=== PATIENT | female | born 1995 | race Caucasian/White ===

== ENCOUNTER 2017-11-11 13:35 | Emergency (ER) | payer BC, OTHER ==
[~2017-11-11] VITALS: Ht 165.1 cm; Wt 72.6 kg
[2017-11-11 13:55] VITALS: BP 127/76
[2017-11-11] MEDS ORDERED: IV NORMAL SALINE 1,000ML 1,000 ML IV SCH (14:03)
[2017-11-11] MEDS ORDERED: 0.9 % SODIUM CHLORIDE 10 ML DISP.SYRIN. IV PRN (14:15)
[2017-11-11 14:28] LABS: BASO % 0 % (0-3); EOS # 0.4 x10^3/uL (0.0-0.7); EOS % 3 % (0-3); HEMATOCRIT 45.7 % (36.0-47.0); HEMOGLOBIN 15.4 g/dL (12.0-15.5); LYMPH # 1.3 x10^3/uL (1.0-4.8); LYMPH % 11 % (24-48); MEAN CORPUSCULAR HEMOGLOBIN 29 pg (25-35); MEAN CORPUSCULAR HGB CONC 34 g/dL (31-37); MEAN CORPUSCULAR VOLUME 87 fL (79-100); MONO # 0.4 x10^3/uL (0.0-1.1); MONO % 4 % (0-9); NEUT # 9.3 x10^3uL (1.8-7.7); NEUT % 82 % (31-73); PLATELET COUNT 286 x10^3/uL (140-400); RED BLOOD COUNT 5.24 x10^6/uL (3.50-5.40); RED CELL DISTRIBUTION WIDTH 13.2 % (11.5-14.5); WHITE BLOOD COUNT 11.4 x10^3/uL (4.0-11.0)
[2017-11-11] MEDS ORDERED: ONDANSETRON PF 4 MG/2 ML VIAL. IV ONE (14:30)
--- NOTE | 2017-11-11 14:33 | PHYS DOC ---
Past History Past Medical History: No Pertinent History Adult General Chief Complaint Chief Complaint: ABDOMINAL PAIN HPI HPI 21-year-old female patient complaining of right lower quadrant pain that woke her up at 7 AM as a constant and sharp pain with radiation to her back and associated with 5 episodes of vomiting and 7 or 8 episodes of nonbloody diarrhea patient complaining of anorexia without fever and chills and urinary symptom and vaginal bleeding or discharge. Patient denies sick contact. Patient rated her pain 8/10. Patient states she is on control and her last period was 9 months ago. Review of Systems Review of Systems Constitutional: Denies fever or chills [] Eyes: Denies change in visual acuity, redness, or eye pain [] HENT: Denies nasal congestion or sore throat [] Respiratory: Denies cough or shortness of breath [] Cardiovascular: No additional information not addressed in HPI [] GI: Reports abdominal pain, nausea, vomiting, diarrhea [] : Denies dysuria or hematuria [] Musculoskeletal: Denies back pain or joint pain [] Integument: Denies rash or skin lesions [] Neurologic: Denies headache, focal weakness or sensory changes [] Endocrine: Denies polyuria or polydipsia [] All other systems were reviewed and found to be within normal limits, except as documented in this note. Current Medications Current Medications Current Medications Medications (Trade) Dose Ordered Sig/Mayela Start Time Stop Time Status Last Admin Dose Admin Ondansetron HCl (Zofran) 4 mg 1X ONCE 11/11/17 14:15 11/11/17 14:16 UNV Sodium Chloride (Normal Saline Flush) 10 ml QSHIFT PRN 11/11/17 14:15 UNV Physical Exam Physical Exam Constitutional: Well developed, well nourished, mild distress, non-toxic appearance. [] HENT: Normocephalic, atraumatic, bilateral external ears normal, oropharynx moist, no oral exudates, nose normal. [] Eyes: PERRLA, EOMI, conjunctiva normal, no discharge. [] Neck: Normal range of motion, no tenderness, supple, no stridor. [] Cardiovascular:Heart rate regular rhythm, no murmur [] Lungs & Thorax: Bilateral breath sounds clear to auscultation [] Abdomen: Bowel sounds normal, soft, no tenderness, right lower quadrant guarding , no masses, no pulsatile masses. [] Skin: Warm, dry, no erythema, no rash. [] Back: No tenderness, no CVA tenderness. [] Extremities: No tenderness, no cyanosis, no clubbing, ROM intact, no edema. [] Neurologic: Alert and oriented X 3, normal motor function, normal sensory function, no focal deficits noted. [] Psychologic: Affect normal, judgement normal, mood normal. [] EKG EKG [] Radiology/Procedures Radiology/Procedures [] Course & Med Decision Making Course & Med Decision Making Pertinent Labs reviewed. (See chart for details) Evaluation of patient in ER showed young lady presented with nausea and vomiting and diarrhea and abdominal pain since this morning. Patient had unremarkable physical exam except for the right lower quadrant guarding that resolved after treatment in ER. Patient tolerated oral intake. Labs and UA was unremarkable except for mild leukocytosis. Plan discharge patient home with diagnosis of acute gastroenteritis. [] Dragon Disclaimer Dragon Disclaimer This electronic medical record was generated, in whole or in part, using a voice recognition dictation system. Departure Departure: Impression: Primary Impression: Acute gastroenteritis Additional Impression: Right lower quadrant abdominal pain Disposition: HOME, SELF-CARE (At 1551) Condition: IMPROVED Referrals: PCPDELLA (PCP) Patient Instructions: Viral Gastroenteritis Additional Instructions: Take only liquid diet today Follow-up with your primary care physician in 3-5 days Return to ER if not feeling better Scripts Naproxen (NAPROSYN) 500 Mg Tablet 1 TAB PO BID, #14 TAB 1 Refill Prov: ACOSTA KING MD 11/11/17 Ondansetron (ZOFRAN ODT) 4 Mg Tab.rapdis 1 TAB SL Q8HRS, #15 TAB Prov: ACOSTA KING MD 11/11/17 Problem Qualifiers ACOSTA KING MD Nov 11, 2017 14:33
[2017-11-11 14:39] LABS: ALBUMIN 4.2 g/dL (3.4-5.0); ALBUMIN/GLOBULIN RATIO 1.1 (1.0-1.7); CALCIUM 8.9 mg/dL (8.5-10.1); CREATININE 0.9 mg/dL (0.6-1.0); GFR 80.7; TOTAL BILIRUBIN 0.8 mg/dL (0.2-1.0); TOTAL PROTEIN 7.9 g/dL (6.4-8.2)
[2017-11-11] MEDS ORDERED: KETOROLAC 30 MG/ML VIAL. IV ONE (14:45)
[2017-11-11 15:13] LABS: BILIRUBIN,URINE NEG (NEG); CLARITY,URINE HAZY; COLOR,URINE YELLOW; GLUCOSE,URINE NEG (NEG); NITRITE,URINE NEG (NEG); UROBILINOGEN,URINE 0.2 mg/dL (0.2 mg/dL)
[2017-11-11 15:14] LABS: BACTERIA,URINE FEW /HPF (0-FEW); SQUAMOUS EPITHELIAL CELL,UR MOD /LPF; WBC,URINE OCC /HPF (0-4)
[2017-11-11] MEDS ORDERED: NAPR-683 PO (15:50)
[2017-11-11] MEDS ORDERED: ONDA4TAB10 SL (15:50)
== END 2017-11-11 16:01 | disposition home or self-care (01) ==
LOC: ER 13:35
DX: K52.89 Other specified noninfective gastroenteritis and colitis (principal); R10.31 Right lower quadrant pain
CPT/HCPCS: 36415; 80053; 81001; 81025; 83690; 85025; 96361; 96374; 96375; 99284; J1885; J2405; J7030

== ENCOUNTER 2018-03-12 19:34 | Emergency (ER) | payer SELFPAY ==
[~2018-03-12] VITALS: Ht 165.1 cm; Wt 72.6 kg
[~2018-03-12 19:34] MED LIST: NAPR-683 PO; ONDA4TAB10 SL
[2018-03-12 19:39] VITALS: BP 119/79
[2018-03-12] MEDS ORDERED: TETRACAINE 0.5% OPHTH SOLUTION 4ML BOTTLE. OS ONE (20:15)
[2018-03-12] MEDS ORDERED: FLUORESCEIN 1MG EYE STRIP. OS ONE (20:15)
--- NOTE | 2018-03-12 20:34 | PHYS DOC ---
Past History Past Medical History: No Pertinent History Past Surgical History: No Surgical History Smoking: Non-smoker Additional Smoking Information: "Vapes" occasionally as well, pt states Alcohol Use: None Drug Use: None Adult General Chief Complaint Chief Complaint: FOREIGN BODY/EYES HPI HPI 22-year-old female presents with concern for foreign body in her left eye. She was cleaning up a broken phone case that had an oily substance in it. She accidentally wiped her left eye with her finger which had the oil on it. She began to have discomfort in the side. She went to the urgent care who did flush the eye with saline. The pain continued and so the provider recommended she come to the ED for further evaluation. On arrival, the patient has discomfort and slight blurriness to her vision. Incident occurred about 2 hours ago. She denies any other injury or chance of foreign body. She has no other complaints. Review of Systems Review of Systems Constitutional: Denies fever or chills [] Eyes: Blurry vision in left eye. Pain in left eye. HENT: Denies nasal congestion or sore throat [] Respiratory: Denies cough or shortness of breath [] Cardiovascular: No additional information not addressed in HPI [] GI: Denies abdominal pain, nausea, vomiting, bloody stools or diarrhea [] : Denies dysuria or hematuria [] Musculoskeletal: Denies back pain or joint pain [] Integument: Denies rash or skin lesions [] Neurologic: Denies headache, focal weakness or sensory changes [] Endocrine: Denies polyuria or polydipsia [] All other systems were reviewed and found to be within normal limits, except as documented in this note. Family History Family History No relevant family history Current Medications Current Medications Current Medications Medications (Trade) Dose Ordered Sig/Mayela Start Time Stop Time Status Last Admin Dose Admin Fluorescein Sodium (Ful-Chica 1mg) 1 strip 1X ONCE 03/12/18 20:15 03/12/18 20:17 DC Tetracaine HCl (Tetracaine) 1 drop 1X ONCE 03/12/18 20:15 03/12/18 20:17 DC Allergies Allergies Allergies Coded Allergies Type Severity Reaction Last Updated Verified No Known Drug Allergies 11/11/17 No Physical Exam Physical Exam Constitutional: Well developed, well nourished, no acute distress, non-toxic appearance. [] HENT: Normocephalic, atraumatic, bilateral external ears normal, oropharynx moist, no oral exudates, nose normal. [] Eyes: PERRLA, EOMI, conjunctiva normal, no discharge. Slight fluorescein uptake in the lateral sclera. No corneal abrasion or obvious foreign body. Neck: Normal range of motion, no tenderness, supple, no stridor. [] Cardiovascular:Heart rate regular rhythm, no murmur [] Lungs & Thorax: Bilateral breath sounds clear to auscultation [] Abdomen: Bowel sounds normal, soft, no tenderness, no masses, no pulsatile masses. [] Skin: Warm, dry, no erythema, no rash. [] Back: No tenderness, no CVA tenderness. [] Extremities: No tenderness, no cyanosis, no clubbing, ROM intact, no edema. [] Neurologic: Alert and oriented X 3, normal motor function, normal sensory function, no focal deficits noted. [] Psychologic: Affect normal, judgement normal, mood normal. [] Current Patient Data Vital Signs Vital Signs Date Time Temp Pulse Resp B/P (MAP) Pulse Ox O2 Delivery O2 Flow Rate FiO2 03/12/18 19:39 98.4 85 20 99 Room Air EKG EKG [] Radiology/Procedures Radiology/Procedures [] Impressions: I do not see any corneal abrasion of the eye. There is mild uptake of the fluorescein in the sclera, but this was a location where the dye was applied. I do not believe antibiotics are indicated for this patient. Impression: Pain in the left eye due to foreign chemical substance. Course & Med Decision Making Course & Med Decision Making Pertinent Labs and Imaging studies reviewed. (See chart for details) [] Dragon Disclaimer Dragon Disclaimer This electronic medical record was generated, in whole or in part, using a voice recognition dictation system. Departure Departure: Disposition: 01 HOME, SELF-CARE Condition: STABLE Referrals: PCP,DELLA (PCP) MARITA MENDOZA DO March 12, 2018 20:34
== END 2018-03-12 20:40 | disposition home or self-care (01) ==
LOC: ER 19:34
DX: H57.12 Ocular pain, left eye (principal); Z77.098 Contact with and (suspected) exposure to other hazardous, chiefly nonmedicinal, chemicals
CPT/HCPCS: 99283

== ENCOUNTER 2018-04-22 20:57 | Emergency (ER) | payer SELFPAY ==
[~2018-04-22] VITALS: Ht 165.1 cm; Wt 74.6 kg
--- NOTE | 2018-04-22 20:59 | ED.ADGEN ---
Past History Past Medical History: No Pertinent History Past Surgical History: No Surgical History Smoking: Non-smoker Alcohol Use: None Drug Use: None Adult General Chief Complaint Chief Complaint "...I was putting a lid on trash can.. and caught my Rt. palm.. and got this laceration ( 2 cm). HPI HPI Patient is a 22 year old female who presents with above hx and complaints 2 cm laceration to Rt. palm. Distal neurovascular intact. Tetanus is up to date. Laceration is somewhat flap like and part of skin appears avascular. Patient is right-hand dominant. Patient denies any history of immunosuppression. Patient denies any specific ill contacts. Patient normally healthy. Patient works in healthcare. Review of Systems Review of Systems Constitutional: Denies fever or chills [] Eyes: Denies change in visual acuity, redness, or eye pain [] HENT: Denies nasal congestion or sore throat [] Respiratory: Denies cough or shortness of breath [] Cardiovascular: No additional information not addressed in HPI [] GI: Denies abdominal pain, nausea, vomiting, bloody stools or diarrhea [] : Denies dysuria or hematuria [] Musculoskeletal: Denies back pain or joint pain [] Integument: Denies rash or skin lesions []Complaints of laceration Neurologic: Denies headache, focal weakness or sensory changes [] Endocrine: Denies polyuria or polydipsia [] All other systems were reviewed and found to be within normal limits, except as documented in this note. Family History Family History Noncontributory Current Medications Current Medications Current Medications Medications (Trade) Dose Ordered Sig/Mayela Start Time Stop Time Status Last Admin Dose Admin Bupivacaine HCl (Sensorcaine Mpf 0.5%) 30 ml 1X ONCE 04/22/18 21:15 04/22/18 21:16 DC Lidocaine HCl 20 ml 1X ONCE 04/22/18 21:15 04/22/18 21:16 DC Tetanus/ Diphtheria Toxoids Adsorbed (Tenivac Vial) 0.5 ml ONCE ONCE 04/22/18 22:00 04/22/18 22:01 DC 04/22/18 22:04 0.5 ML Allergies Allergies Allergies Coded Allergies Type Severity Reaction Last Updated Verified No Known Drug Allergies 11/11/17 No Physical Exam Physical Exam Constitutional: Well developed, well nourished, moderately acute distress, non- toxic appearance. [] HENT: Normocephalic, atraumatic, bilateral external ears normal, oropharynx moist, no oral exudates, nose normal. [] Eyes: PERRLA, EOMI, conjunctiva normal, no discharge. [] Neck: Normal range of motion, no tenderness, supple, no stridor. [] Cardiovascular:Heart rate regular rhythm, no murmur [] Lungs & Thorax: Bilateral breath sounds clear to auscultation [] Abdomen: Bowel sounds normal, soft, no tenderness, no masses, no pulsatile masses. [] Skin: Warm, dry, no erythema, no rash. [] Sedation per history of present illness Back: No tenderness, no CVA tenderness. [] Extremities: No tenderness, no cyanosis, no clubbing, ROM intact, no edema. [] Neurologic: Alert and oriented X 3, normal motor function, normal sensory function, no focal deficits noted. [] Psychologic: Affect anxious, judgement normal, mood normal. [] Current Patient Data Vital Signs Vital Signs Date Time Temp Pulse Resp B/P (MAP) Pulse Ox O2 Delivery O2 Flow Rate FiO2 04/22/18 21:00 98.5 82 20 99 Room Air EKG EKG [] Radiology/Procedures Radiology/Procedures [] Course & Med Decision Making Course & Med Decision Making Pertinent Labs and Imaging studies reviewed. (See chart for details) Procedure note- laceration repair- handwasher surgical soap. Betadine applied to edge of laceration. Injected edge of laceration of Sensorcaine and lidocaine. Re-irrigated hand and range of motion. Placed 5 x 4-0 prolene sutures. Dressing applied with Bactracin. Patient to keep laceration clean and dry. When dressing removal apply Polysporin 4 times a day. Follow-up primary care. Sutures out in 10 days. Monitor closely for signs of infection. Tylenol and ibuprofen for pain. [] Final Impression Final Impression 1. 2 cm laceration Rt. palm[] Dragon Disclaimer Dragon Disclaimer This electronic medical record was generated, in whole or in part, using a voice recognition dictation system. MIKE AMBROCIO MD Apr 22, 2018 20:59
[2018-04-22 21:00] VITALS: BP 130/73
[2018-04-22] MEDS ORDERED: LIDOCAINE 2% 20 ML VIAL. IJ ONE (21:15)
[2018-04-22] MEDS ORDERED: BUPIVACAINE MPF 0.5% 30 ML VIAL. SQ ONE (21:15)
[2018-04-22] MEDS ORDERED: TETANUS AND DIPHTHERIA TOX/PF 0.5 ML VIAL. VAX IM ONE (22:00)
== END 2018-04-22 22:22 | disposition home or self-care (01) ==
LOC: ER 20:57
DX: S61.411A Laceration without foreign body of right hand, initial encounter (principal); W26.8XXA Contact with other sharp object(s), not elsewhere classified, initial encounter; Y93.89 Activity, other specified; Y92.89 Other specified places as the place of occurrence of the external cause; Y99.8 Other external cause status
CPT/HCPCS: 12001; 90471; 90714; 99283-25

== ENCOUNTER 2018-05-08 10:00 | Emergency (ER) | payer OTHER ==
[~2018-05-08] VITALS: Ht 165.1 cm; Wt 74.8 kg
[2018-05-08 11:21] LABS: BILIRUBIN,URINE NEG (NEG); CLARITY,URINE HAZY; COLOR,URINE YELLOW; GLUCOSE,URINE NEG (NEG)
[2018-05-08 11:22] LABS: BACTERIA,URINE MOD /HPF (0-FEW); NITRITE,URINE NEG (NEG); SQUAMOUS EPITHELIAL CELL,UR MOD /LPF; UROBILINOGEN,URINE 0.2 mg/dL (0.2 mg/dL)
[2018-05-08 11:26] LABS: U PREG PATIENT NEGATIVE (NEG)
[2018-05-08] MEDS ORDERED: SULF1TAB24 PO (11:38)
[2018-05-08] MEDS ORDERED: NAPR-683 PO (11:38)
--- NOTE | 2018-05-08 11:38 | PHYS DOC ---
Past History Past Medical History: No Pertinent History Past Surgical History: Other Smoking: Non-smoker Alcohol Use: None Drug Use: None Adult General Chief Complaint Chief Complaint: abdominal pain [facility] 22-year-old female patient complaining of constant right lower quadrant pain for the last 3 days without radiation urinary symptoms, fever and chills, anorexia, nausea and vomiting, constipation and diarrhea. Patient said the pain getting worse with activity. Patient rated her pain moderate and doesn't want pain medication in ER. Review of Systems Review of Systems Constitutional: Denies fever or chills [] Eyes: Denies change in visual acuity, redness, or eye pain [] HENT: Denies nasal congestion or sore throat [] Respiratory: Denies cough or shortness of breath [] Cardiovascular: No additional information not addressed in HPI [] GI: Reports abdominal pain, denies vomiting, bloody stools or diarrhea [] : Denies dysuria or hematuria [] Musculoskeletal: Denies back pain or joint pain [] Integument: Denies rash or skin lesions [] Neurologic: Denies headache, focal weakness or sensory changes [] Endocrine: Denies polyuria or polydipsia [] All other systems were reviewed and found to be within normal limits, except as documented in this note. Allergies Allergies Allergies Coded Allergies Type Severity Reaction Last Updated Verified No Known Drug Allergies 11/11/17 No Physical Exam Physical Exam Constitutional: Well developed, well nourished, no acute distress, non-toxic appearance. [] HENT: Normocephalic, atraumatic, bilateral external ears normal, oropharynx moist, no oral exudates, nose normal. [] Eyes: PERRLA, EOMI, conjunctiva normal, no discharge. [] Neck: Normal range of motion, no tenderness, supple, no stridor. [] Cardiovascular:Heart rate regular rhythm, no murmur [] Lungs & Thorax: Bilateral breath sounds clear to auscultation [] Abdomen: Bowel sounds normal, soft, no tenderness, no masses, no pulsatile masses. [] Skin: Warm, dry, no erythema, no rash. [] Back: No tenderness, no CVA tenderness. [] Extremities: No tenderness, no cyanosis, no clubbing, ROM intact, no edema. [] Neurologic: Alert and oriented X 3, normal motor function, normal sensory function, no focal deficits noted. [] Psychologic: Affect normal, judgement normal, mood normal. [] Current Patient Data Vital Signs Vital Signs Date Time Temp Pulse Resp B/P (MAP) Pulse Ox O2 Delivery O2 Flow Rate FiO2 05/08/18 10:21 98.3 94 18 99 Room Air Lab Results Laboratory Tests Test 05/08/18 10:58 Urine Collection Type Unknown Urine Color Yellow Urine Clarity Hazy Urine pH 6.0 Urine Specific [place] 1.025 Urine Protein Neg (NEG-TRACE) Urine Glucose (UA) Neg mg/dL (NEG) Urine Ketones (Stick) Trace mg/dL (NEG) Urine Blood Trace (NEG) Urine Nitrite Neg (NEG) Urine Bilirubin Neg (NEG) Urine Urobilinogen Dipstick 0.2 mg/dL (0.2 mg/dL) Urine Leukocyte Esterase Trace (NEG) Urine RBC 1-2 /HPF (0-2) Urine WBC 1-4 /HPF (0-4) Urine Squamous Epithelial Cells Mod /LPF Urine Bacteria Mod /HPF (0-FEW) Urine Mucus Marked /LPF Urine Test Negative (NEG) EKG EKG [] Radiology/Procedures Radiology/Procedures [] Course & Med Decision Making Course & Med Decision Making Pertinent Labs reviewed. (See chart for details) discharge: I've spoken with the patient and/or caregivers. I've explained the patient's condition, diagnosis and treatment plan based on information available to me at this time. I've answered the patient's and/or caregivers questions and addressed any concerns. The patient and/or caregivers have a good understanding the patient's diagnosis, condition and treatment plan as can be expected at this point. Vital signs have been stabilized. The patient's condition is stable for discharge from the emergency department. The patient will pursue further outpatient evaluation with her primary care provider or other designated consulting physician as outlined in the discharge instructions. Patient and/or caregivers are agreeable to this plan of care and follow-up instructions have been explained in detail. The patient and/or caregivers have received these instructions in written format and expressed understanding of these discharge instructions. The patient and her caregivers are aware that if any significant change in condition or worsening of symptoms should prompt him to immediately return to this of the closest emergency department. If an emergent department is not readily available I would encourage him to call 911. [] Dragon Disclaimer Dragon Disclaimer This electronic medical record was generated, in whole or in part, using a voice recognition dictation system. Departure Departure: Impression: Primary Impression: Urinary tract infection Additional Impressions: Right lower quadrant pain Tobacco abuse Tobacco abuse counseling Disposition: HOME, SELF-CARE (At 1136) Condition: STABLE Referrals: PCP,DELLA (PCP) Patient Instructions: Smoking Cessation, Tips For Success, Urinary Tract Infection Additional Instructions: Drink plenty of liquids Follow-up with your primary care physician in 3-5 days Return to ER if not getting better Scripts Naproxen (NAPROSYN) 500 Mg Tablet 1 TAB PO BID, #14 TAB 1 Refill Prov: ACOSTA KING MD 05/08/18 Sulfamethoxazole/Trimethoprim (BACTRIM DS TABLET) 1 Each Tablet 1 TAB PO BID, #6 TAB Prov: ACOSTA KING MD 05/08/18 Problem Qualifiers ACOSTA KING MD May 08, 2018 11:38
[2018-05-08 11:44] VITALS: BP 116/69
== END 2018-05-08 11:45 | disposition home or self-care (01) ==
LOC: ER 10:00
DX: N39.0 Urinary tract infection, site not specified (principal); Z72.0 Tobacco use; Z71.6 Tobacco abuse counseling
CPT/HCPCS: 81001; 81025; 87086; 99284

== ENCOUNTER 2018-06-07 13:37 | Emergency (ER) | payer OTHER ==
[~2018-06-07] VITALS: Ht 165.1 cm; Wt 73.9 kg
[~2018-06-07 13:37] MED LIST changes: +SULF1TAB24 PO
--- NOTE | 2018-06-07 14:15 | PHYS DOC ---
Past History Past Medical History: No Pertinent History Past Surgical History: Other Smoking: Non-smoker Alcohol Use: None Drug Use: None Adult General Chief Complaint Chief Complaint: UPPER EXTREMITY INJURY [facility] HPI Patient is a [22] year old right-handed [female] who presents with [complaining of left elbow pain. Patient states she was wrestling with her last night and tried to spanks "his janice but" and felt a pop in her left elbow] the patient states she took Advil and applied ice on her elbow complaining of painful movement of her elbow and holding her and pulling flexion position. Patient denies other injuries and focal neuro deficit. Patient rated her pain 6/ 10. Patient states her last saturation was April 17 and had a home negative test 1 week ago but she is not sure about . Review of Systems Review of Systems Constitutional: Denies fever or chills [] Eyes: Denies change in visual acuity, redness, or eye pain [] HENT: Denies nasal congestion or sore throat [] Respiratory: Denies cough or shortness of breath [] Cardiovascular: No additional information not addressed in HPI [] GI: Denies abdominal pain, nausea, vomiting, bloody stools or diarrhea [] : Denies dysuria or hematuria [] Musculoskeletal: Denies back pain, reports joint pain [] Integument: Denies rash or skin lesions [] Neurologic: Denies headache, focal weakness or sensory changes [] Endocrine: Denies polyuria or polydipsia [] All other systems were reviewed and found to be within normal limits, except as documented in this note. Allergies Allergies Allergies Coded Allergies Type Severity Reaction Last Updated Verified No Known Drug Allergies 11/11/17 No Physical Exam Physical Exam Constitutional: Well developed, well nourished, mild distress, non-toxic appearance. [] HENT: Normocephalic, atraumatic Eyes: PERRLA, EOMI, conjunctiva normal, no discharge. [] Neck: Normal range of motion, no tenderness, supple, no stridor. [] Cardiovascular:Heart rate regular rhythm, no murmur [] Lungs & Thorax: Bilateral breath sounds clear to auscultation [] Skin: Warm, dry, no erythema, no rash. [] Extremities: Patient holding the left elbow infection position without deformity or edema or ecchymosis, limited range of motion with pain without bone tenderness No tenderness, no cyanosis, no clubbing, no edema. [] Neurologic: Alert and oriented X 3, normal motor function, normal sensory function, no focal deficits noted. [] Psychologic: Affect normal, judgement normal, mood normal. [] EKG EKG [] Radiology/Procedures Radiology/Procedures [[address] [address] IMAGING REPORT Signed PATIENT: ANIA FLORIAN ACCOUNT: [id number] : 1995 LOCATION: ER AGE: 22 SEX: F EXAM STATUS: PRE ER ORD. PHYSICIAN: ACOSTA KING MD REASON: pain after injury PROCEDURE: ELBOW LEFT 3V Examination: 3 views of the left elbow HISTORY: History of left elbow pain, injury COMPARISON: None available FINDINGS: The alignment of the elbow joint grossly appears unremarkable. There is no acute fracture or dislocation identified. IMPRESSION: No acute osseous findings. If pain persists follow-up radiograph is recommended in 5-7 days. Electronically signed by: Shaun Azul MD (06/07/2018 2:10 PM) [facility] DICTATED AND SIGNED BY: SHAUN AZUL MD DATE: 06/07/18 140 CC: ACOSTA KING MD; PCP,NO ~ ] Course & Med Decision Making Course & Med Decision Making Pertinent Imaging studies reviewed. (See chart for details) Evaluation of patient in ER showed 22-year-old female patient with complaining of left elbow pain. Patient had unremarkable physical exam except for limited range of motion. X-ray did not show fracture. Patient didn't want to have pain medication in ER. Patient had negative tests but had UTI. Prescription for Cipro and Naprosyn was given and Chi wrap was applied in ER by [employer]. [] Dragon Disclaimer Dragon Disclaimer This electronic medical record was generated, in whole or in part, using a voice recognition dictation system. Departure Departure: Impression: Primary Impression: Sprain of elbow, left Additional Impression: Urinary tract infection Disposition: 01 HOME, SELF-CARE (at 1426) Condition: STABLE Referrals: PCP,NO (PCP) Patient Instructions: Elbow Injury, Urinary Tract Infection Additional Instructions: Drink plenty of liquids Follow-up with your primary care physician in 3-5 days Return to ER if not getting better Apply ice on your elbow Scripts Ciprofloxacin Hcl (CIPRO) 250 Mg Tablet 1 TAB PO BID, #6 TAB Prov: ACOSTA KING MD 06/07/18 Naproxen (NAPROSYN) 500 Mg Tablet 1 TAB PO BID, #14 TAB Prov: ACOSTA KING MD 06/07/18 Problem Qualifiers ACOSTA KING MD Jun 07, 2018 14:15
[2018-06-07] MEDS ORDERED: NAPR-683 PO (14:29)
[2018-06-07] MEDS ORDERED: CIPR250T30 PO (14:29)
[2018-06-07 14:39] LABS: BILIRUBIN,URINE NEG (NEG); CLARITY,URINE CLOUDY; COLOR,URINE YELLOW; GLUCOSE,URINE NEG (NEG); NITRITE,URINE NEG (NEG); UROBILINOGEN,URINE 1 mg/dL (0.2 mg/dL)
[2018-06-07 14:40] LABS: BACTERIA,URINE MOD /HPF (0-FEW); RBC,URINE 0 /HPF (0-2); SQUAMOUS EPITHELIAL CELL,UR MANY /LPF; WBC,URINE 20-40 /HPF (0-4)
== END 2018-06-07 14:40 | disposition home or self-care (01) ==
LOC: ER 13:37
DX: S53.402A Unspecified sprain of left elbow, initial encounter (principal); N39.0 Urinary tract infection, site not specified; X50.9XXA Other and unspecified overexertion or strenuous movements or postures, initial encounter; Y93.72 Activity, wrestling; Y92.89 Other specified places as the place of occurrence of the external cause; Y99.8 Other external cause status
CPT/HCPCS: 73080; 81001; 81025; 87086; 99285

== ENCOUNTER 2018-06-15 21:12 | Emergency (ER) | payer OTHER ==
[~2018-06-15] VITALS: Ht 317.5 cm; Wt 74.6 kg
[~2018-06-15 21:12] MED LIST changes: +CIPR250T30 PO
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
[2018-06-15 21:40] VITALS: BP 133/77
[2018-06-15] MEDS ORDERED: HYDROcodon/IBUPROFEN 7.5/200MG 1 TAB TABLET PO ONE (22:00)
[2018-06-15] MEDS ORDERED: IBUP400T18 PO (22:04)
[2018-06-15] MEDS ORDERED: HYDROcodon/IBUPROFEN 7.5/200MG 1 TAB TABLET ONE (22:07)
--- NOTE | 2018-06-16 08:24 | RAD ---
EXAM: 3 views of the left elbow DATE: 06/15/2018 9:51 PM CLINICAL INDICATION: LEFT ELBOW XRAYS TAKEN AT TIME OF INJURY 8.4.18, STILL NOT ANY BETTER. PAIN WITH TOUCH AND UNABLE TO BEND WITHOUT PAIN COMPARISON: None. FINDINGS/ IMPRESSION: There is no acute fracture or dislocation. No elbow joint effusion. Joint spaces are preserved without significant degenerative/proliferative change Electronically signed by: Cricket Watkins MD (06/16/2018 8:20 AM) [facility]
== END 2018-06-15 22:15 | disposition home or self-care (01) ==
LOC: ER 21:12
DX: S53.492A Other sprain of left elbow, initial encounter (principal); Z88.1 Allergy status to other antibiotic agents; W51.XXXA Accidental striking against or bumped into by another person, initial encounter; Y93.89 Activity, other specified; Y92.89 Other specified places as the place of occurrence of the external cause; Y99.8 Other external cause status
CPT/HCPCS: 29240; 73080; 99284

== ENCOUNTER 2018-07-16 15:40 | Emergency (ER) | payer OTHER ==
[~2018-07-16] VITALS: Ht 165.1 cm; Wt 69.4 kg
[~2018-07-16 15:40] MED LIST changes: +IBUP400T18 PO
[2018-07-16 16:17] LABS: BASO # 0.1 x10^3/uL (0.0-0.2); BASO % 1 % (0-3); EOS # 0.3 x10^3/uL (0.0-0.7); EOS % 4 % (0-3); HEMATOCRIT 41.3 % (36.0-47.0); HEMOGLOBIN 13.6 g/dL (12.0-15.5); LYMPH # 3.2 x10^3/uL (1.0-4.8); LYMPH % 38 % (24-48); MEAN CORPUSCULAR HEMOGLOBIN 29 pg (25-35); MEAN CORPUSCULAR HGB CONC 33 g/dL (31-37); MEAN CORPUSCULAR VOLUME 88 fL (79-100); MONO # 0.6 x10^3/uL (0.0-1.1); MONO % 8 % (0-9); NEUT % 49 % (31-73); PLATELET COUNT 111 x10^3/uL (140-400); RED BLOOD COUNT 4.71 x10^6/uL (3.50-5.40); RED CELL DISTRIBUTION WIDTH 13.4 % (11.5-14.5); WHITE BLOOD COUNT 8.2 x10^3/uL (4.0-11.0)
[2018-07-16 16:32] LABS: ALBUMIN 3.5 g/dL (3.4-5.0); CALCIUM 8.6 mg/dL (8.5-10.1); CREATININE 0.9 mg/dL (0.6-1.0); DIRECT BILIRUBIN 0.1 mg/dL (0.0-0.2); GFR 79.8; POTASSIUM 4.3 mmol/L (3.5-5.1); TOTAL BILIRUBIN 0.2 mg/dL (0.2-1.0); TOTAL PROTEIN 6.7 g/dL (6.4-8.2)
[2018-07-16 17:29] LABS: PLATELET CLUMP PRESENT; PLT ESTIMATE DECREASED (ADEQUATE)
[2018-07-16 17:33] LABS: BARBITURATES NEG (NEG); BENZODIAZEPINES NEG (NEG); CANNABINOIDS NEG (NEG); COCAINE NEG (NEG); METHADONE NEG (NEG); OPIATES NEG (NEG); PHENCYCLIDINE NEG (NEG)
[2018-07-16 17:34] LABS: AMPHETAMINE/METHAMPHETAMINE NEG (NEG)
[2018-07-16 17:35] LABS: BILIRUBIN,URINE NEG (NEG); CLARITY,URINE HAZY; COLOR,URINE YELLOW; GLUCOSE,URINE NEG (NEG)
[2018-07-16 17:36] LABS: BACTERIA,URINE MOD /HPF (0-FEW); NITRITE,URINE NEG (NEG); RBC,URINE RARE /HPF (0-2); SQUAMOUS EPITHELIAL CELL,UR MANY /LPF; UROBILINOGEN,URINE 1 mg/dL (0.2 mg/dL)
[2018-07-16] MEDS ORDERED: CIPROFLOXACIN HCL 500 MG TABLET PO ONE (17:45)
--- NOTE | 2018-07-16 17:57 | PHYS DOC ---
Past History Past Medical History: Depression Past Surgical History: Other Smoking: Non-smoker Alcohol Use: None Drug Use: None Adult General Chief Complaint Chief Complaint: LACERATION/AVULSION [facility] HPI Patient is a 22 year old female who presents with laceration of left forearm. Patient states she cut her left forearm to decrease of her anxiety and depression with a knife at home. Patient states she had history of depression since age of 14 with multiple self- mutilation and suicidal attempts with the last suicidal attempt 1 year ago. Patient denies homicidal ideation. She complaining of audible hallucination. Patient denies suicidal ideation at this time. Patient is up-to-date with tetanus immunization. Review of Systems Review of Systems Constitutional: Denies fever or chills [] Eyes: Denies change in visual acuity, redness, or eye pain [] HENT: Denies nasal congestion or sore throat [] Respiratory: Denies cough or shortness of breath [] Cardiovascular: No additional information not addressed in HPI [] GI: Denies abdominal pain, nausea, vomiting, bloody stools or diarrhea [] : Denies dysuria or hematuria [] Musculoskeletal: Denies back pain or joint pain [] Integument: Denies rash or skin lesions [] Neurologic: Denies headache, focal weakness or sensory changes [] Endocrine: Denies polyuria or polydipsia [] All other systems were reviewed and found to be within normal limits, except as documented in this note. Allergies Allergies Allergies Coded Allergies Type Severity Reaction Last Updated Verified amoxicillin Allergy Unknown 06/07/18 Yes Physical Exam Physical Exam Constitutional: Well developed, well nourished, mild distress, non-toxic appearance. [] HENT: Normocephalic Eyes: PERRLA, EOMI, conjunctiva normal, no discharge. [] Neck: Normal range of motion, no tenderness, supple, no stridor. [] Cardiovascular:Heart rate regular rhythm, no murmur [] Lungs & Thorax: Bilateral breath sounds clear to auscultation [] Abdomen: Bowel sounds normal, soft, no tenderness, no masses, no pulsatile masses. [] Skin: Warm, dry, no erythema, no rash. [] Back: No tenderness, no CVA tenderness. [] Extremities: No tenderness, no cyanosis, no clubbing, ROM intact, no edema, left forearm with 5 cm superficial laceration without active bleeding. [] Neurologic: Alert and oriented X 3, normal motor function, normal sensory function, no focal deficits noted. [] Psychologic: Affect depressed, judgement normal, mood normal. [] Current Patient Data Vital Signs Vital Signs Date Time Temp Pulse Resp B/P (MAP) Pulse Ox O2 Delivery O2 Flow Rate FiO2 07/16/18 15:45 98.4 84 18 98 Room Air Lab Results Laboratory Tests Test 07/16/18 16:04 07/16/18 16:34 07/16/18 17:16 White Blood Count 8.2 x10^3/uL (4.0-11.0) Red Blood Count 4.71 x10^6/uL (3.50-5.40) Hemoglobin 13.6 g/dL (12.0-15.5) Hematocrit 41.3 % (36.0-47.0) Mean Corpuscular Volume 88 fL (79-100) Mean Corpuscular Hemoglobin 29 pg (25-35) Mean Corpuscular Hemoglobin Concent 33 g/dL (31-37) Red Cell Distribution Width 13.4 % (11.5-14.5) Platelet Count 111 x10^3/uL (140-400) L Neutrophils (%) (Auto) 49 % (31-73) Lymphocytes (%) (Auto) 38 % (24-48) Monocytes (%) (Auto) 8 % (0-9) Eosinophils (%) (Auto) 4 % (0-3) H Basophils (%) (Auto) 1 % (0-3) Neutrophils # (Auto) 4.0 x10^3uL (1.8-7.7) Lymphocytes # (Auto) 3.2 x10^3/uL (1.0-4.8) Monocytes # (Auto) 0.6 x10^3/uL (0.0-1.1) Eosinophils # (Auto) 0.3 x10^3/uL (0.0-0.7) Basophils # (Auto) 0.1 x10^3/uL (0.0-0.2) Platelet Estimate Decreased (ADEQUATE) Platelet Clumps, EDTA Present Sodium Level 140 mmol/L (136-145) Potassium Level 4.3 mmol/L (3.5-5.1) Chloride Level 107 mmol/L (98-107) Carbon Dioxide Level 29 mmol/L (21-32) Anion Gap 4 (6-14) L Blood Urea Nitrogen 11 mg/dL (7-20) Creatinine 0.9 mg/dL (0.6-1.0) Estimated GFR (Cockcroft-Gault) 79.8 Glucose Level 90 mg/dL (70-99) Calcium Level 8.6 mg/dL (8.5-10.1) Total Bilirubin 0.2 mg/dL (0.2-1.0) Direct Bilirubin 0.1 mg/dL (0.0-0.2) Aspartate Amino Transferase (AST) 21 U/L (15-37) Alanine Aminotransferase (ALT) 18 U/L (14-59) Alkaline Phosphatase 82 U/L (46-116) Total Protein 6.7 g/dL (6.4-8.2) Albumin 3.5 g/dL (3.4-5.0) Ethyl Alcohol Level < 10 mg/dL (0-10) POC Urine HCG, Qualitative hcg negative (Negative) Urine Collection Type Unknown Urine Color Yellow Urine Clarity Hazy Urine pH 7.0 Urine Specific [place] 1.025 Urine Protein Neg (NEG-TRACE) Urine Glucose (UA) Neg mg/dL (NEG) Urine Ketones (Stick) Neg mg/dL (NEG) Urine Blood Neg (NEG) Urine Nitrite Neg (NEG) Urine Bilirubin Neg (NEG) Urine Urobilinogen Dipstick 1 mg/dL (0.2 mg/dL) Urine Leukocyte Esterase Trace (NEG) Urine RBC Rare /HPF (0-2) Urine WBC 5-10 /HPF (0-4) Urine Squamous Epithelial Cells Many /LPF Urine Bacteria Mod /HPF (0-FEW) Urine Mucus Mod /LPF Urine Opiates Screen Neg (NEG) Urine Methadone Screen Neg (NEG) Urine Barbiturates Neg (NEG) Urine Phencyclidine Screen Neg (NEG) Urine Amphetamine/Methamphetamine Neg (NEG) Urine Benzodiazepines Screen Neg (NEG) Urine Cocaine Screen Neg (NEG) Urine Cannabinoids Screen Neg (NEG) Urine Ethyl Alcohol Neg (NEG) EKG EKG [] Radiology/Procedures Radiology/Procedures [] Course & Med Decision Making Course & Med Decision Making Evaluation of patient in ER showed 22-year-old male patient with history of self mutilation and left forearm laceration with history of suicidal ideation. Patient was repaired with Dermabond and Steri-Strip. Patient was evaluated by psychiatric physician and recommended inpatient treatment. Patient informed about plan of care and she doesn't want to go to psychiatric hospital. Patient informed she has to go voluntarily or involuntarily. Patient care transferred to Dr. Mendoza at 1800. I took over care of the patient at 1800. The consulting psychiatrist recommended inpatient admission. The patient was initially very resistant to this. After further discussion with the nurse the patient has agreed to voluntary psychiatric admission. We contacted her received except as from [place]. Dr. Tom as the accepting physician. She'll be transferred by ambulance. Dragon Disclaimer Dragon Disclaimer This electronic medical record was generated, in whole or in part, using a voice recognition dictation system. Laceration Repair Lac Repair Indication: Left forearm laceration Procedure: The patient was placed in the appropriate position and 5 cm superficial laceration of left forearm was repaired with Dermabond and Steri- Strip. Total repaired wound length: 5 centimeter. Other Items: None The patient tolerated the procedure well. Complications: None. Departure Departure: Impression: Primary Impression: Suicidal ideation Additional Impressions: Self-mutilation Laceration of left forearm Urinary tract infection Referrals: FORREST GALLAGHER (PCP) Problem Qualifiers ACOSTA KING MD Jul 16, 2018 17:57 MARITA MENDOZA DO Jul 16, 2018 20:22
[2018-07-16 20:33] VITALS: BP 130/80
== END 2018-07-16 20:45 ==
LOC: ER 15:45 → EEVIPCON 15:45 → ER 20:45
DX: R45.851 Suicidal ideations (principal); S51.812A Laceration without foreign body of left forearm, initial encounter; N39.0 Urinary tract infection, site not specified; F41.9 Anxiety disorder, unspecified; F32.9 Major depressive disorder, single episode, unspecified; Z91.5 Personal history of self-harm; Z88.1 Allergy status to other antibiotic agents; X78.1XXA Intentional self-harm by knife, initial encounter; Y93.89 Activity, other specified; Y92.89 Other specified places as the place of occurrence of the external cause; Y99.8 Other external cause status
CPT/HCPCS: 12002; 36415; 80048; 80076; 80307; 81001; 81025; 85025; 87086; 99285; G0480; G0479

== ENCOUNTER 2018-08-07 14:46 | Emergency (ER) | payer OTHER ==
[~2018-08-07] VITALS: Ht 165.1 cm; Wt 74.6 kg
--- NOTE | 2018-08-07 15:43 | PHYS DOC ---
Past History Past Medical History: Bipolar, Depression Past Surgical History: No Surgical History Smoking: Non-smoker Alcohol Use: None Drug Use: None Adult General Chief Complaint Chief Complaint: FINGER INJURY HPI HPI 22-year-old female presents with left ring finger injury. The patient was moving a mixer and cut her finger no extension caught between the mixer and a brick wall. It bent the renal extension backward which tore most of her fingernail off with it. Patient initially just noticed that her finger hurt and she looked at it and it was bleeding. Blood for a while. Around she noticed that most of the nail was loose. She presents to the ED because her nail salon person told her she should've the finger nail removed. Patient has no further bleeding. She denies any other injuries. Her pain is well controlled. Review of Systems Review of Systems Constitutional: Denies fever or chills [] Eyes: Denies change in visual acuity, redness, or eye pain [] HENT: Denies nasal congestion or sore throat [] Respiratory: Denies cough or shortness of breath [] Cardiovascular: No additional information not addressed in HPI [] GI: Denies abdominal pain, nausea, vomiting, bloody stools or diarrhea [] : Denies dysuria or hematuria [] Musculoskeletal: Left ring finger pain[] Integument: Denies rash or skin lesions [] Neurologic: Denies headache, focal weakness or sensory changes [] Endocrine: Denies polyuria or polydipsia [] All other systems were reviewed and found to be within normal limits, except as documented in this note. Allergies Allergies Allergies Coded Allergies Type Severity Reaction Last Updated Verified amoxicillin Allergy Unknown 06/07/18 Yes Physical Exam Physical Exam Constitutional: Well developed, well nourished, no acute distress, non-toxic appearance. [] HENT: Normocephalic, atraumatic, bilateral external ears normal, oropharynx moist, no oral exudates, nose normal. [] Eyes: PERRLA, EOMI, conjunctiva normal, no discharge. [] Neck: Normal range of motion, no tenderness, supple, no stridor. [] Cardiovascular:Heart rate regular rhythm, no murmur [] Lungs & Thorax: Bilateral breath sounds clear to auscultation [] Abdomen: Bowel sounds normal, soft, no tenderness, no masses, no pulsatile masses. [] Skin: Warm, dry, no erythema, no rash. [] Back: No tenderness, no CVA tenderness. [] Extremities: The patient's left ring finger has signs of nail detachment and recent bleeding. At this time the nail has at least partially already attached to the bed. It is stable and intact.[] Neurologic: Alert and oriented X 3, normal motor function, normal sensory function, no focal deficits noted. [] Psychologic: Affect normal, judgement normal, mood normal. [] Current Patient Data Vital Signs Vital Signs Date Time Temp Pulse Resp B/P (MAP) Pulse Ox O2 Delivery O2 Flow Rate FiO2 08/07/18 15:03 98.7 84 20 100 EKG EKG [] Radiology/Procedures Radiology/Procedures [] Course & Med Decision Making Course & Med Decision Making Pertinent Labs and Imaging studies reviewed. (See chart for details) The patient's fingernail was not completely loose during my exam. I do not feel that removing it is necessary. At this point I have advised that she cut the extension so sure she can. The existing nail will cover the nailbed and provide protection until and actually falls off if in fact it falls off. There is no sign of infection. There is no sign of subungual hematoma. [] Dragon Disclaimer Dragon Disclaimer This electronic medical record was generated, in whole or in part, using a voice recognition dictation system. Departure Departure: Referrals: FORREST GALLAGHER (PCP) MARITA MENDOZA DO Aug 07, 2018 15:43
[2018-08-07 15:53] VITALS: BP 111/53
== END 2018-08-07 15:58 | disposition home or self-care (01) ==
LOC: ER 14:46
DX: S69.92XA Unspecified injury of left wrist, hand and finger(s), initial encounter (principal); F31.9 Bipolar disorder, unspecified; Z88.1 Allergy status to other antibiotic agents; W29.0XXA Contact with powered kitchen appliance, initial encounter; Y93.89 Activity, other specified; Y92.89 Other specified places as the place of occurrence of the external cause; Y99.8 Other external cause status
CPT/HCPCS: 99281

== ENCOUNTER 2018-12-27 12:27 | Emergency (ER) | payer OTHER ==
[~2018-12-27] VITALS: Ht 152.4 cm; Wt 69.4 kg
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
--- NOTE | 2018-12-27 13:59 | RAD ---
Indication: Right hip and pelvic pain. TECHNIQUE: Single AP view of the pelvis and 2 views of the right hip joint COMPARISON: None Findings/ impression: No acute fracture or dislocation. No arthritic changes. Electronically signed by: Mian Al DO (12/27/2018 1:56 PM) [facility]
[2018-12-27 14:45] VITALS: BP 123/73
[2018-12-27] MEDS ORDERED: ONDANSETRON PF 4 MG/2 ML VIAL. ONE (17:54)
== END 2018-12-27 14:45 | disposition home or self-care (01) ==
LOC: ER 12:27
DX: M25.551 Pain in right hip (principal); G89.11 Acute pain due to trauma; F31.9 Bipolar disorder, unspecified; Z88.1 Allergy status to other antibiotic agents; V43.52XA Car driver injured in collision with other type car in traffic accident, initial encounter; Y93.I9 Activity, other involving external motion; Y92.488 Other paved roadways as the place of occurrence of the external cause; Y99.8 Other external cause status
CPT/HCPCS: 73502; 99283